=== PATIENT | female | born 1985 | race American Indian/Alaskan Native ===

== ENCOUNTER 2016-08-18 23:30 | Emergency (ER) | payer SELFPAY ==
[2016-08-18 23:49] VITALS: BP 138/98
[2016-08-19 00:12] LABS: Basophils % (Auto) 1.3 % (0.0-1.8); Eosinophils % (Auto) 1.3 % (0.0-4.3); Hematocrit 30.7 % (30.3-42.9); Hemoglobin 9.5 gm/dl (10.1-14.3); Mean Corpuscular HGB Conc 31 % (30-34); Platelet Count 347 K/mm3 (140-440); Red Blood Count 4.47 M/mm3 (3.65-5.03); White Blood Count 7.5 K/mm3 (4.5-11.0)
[2016-08-19 00:14] LABS: Mean Corpuscular Hemoglobin 21 pg (28-32); Mean Corpuscular Volume 69 fl (79-97)
[2016-08-19 01:08] LABS: Alanine Aminotransferase 10 units/L (7-56); Albumin 4.4 g/dL (3.9-5); Albumin/Globulin Ratio 1.5 %; Alkaline Phosphatase 44 units/L (35-129); Anion Gap 20 mmol/L; BUN/Creatinine Ratio 14.28; Bilirubin,Total 0.6 mg/dL (0.1-1.2); Blood Urea Nitrogen 10 mg/dL (7-17); Calcium 8.9 mg/dL (8.4-10.2); Carbon Dioxide 23 mmol/L (22-30); Chloride 103.6 mmol/L (98-107); Glucose 88 mg/dL (65-100); Lipase 41 units/L (13-60); Potassium 4.1 mmol/L (3.6-5.0); Sodium 142 mmol/L (137-145); Total Protein 7.4 g/dL (6.3-8.2)
--- NOTE | 2016-08-19 12:45 | ED Elopement Review ---
ED Pt Elopement review - Results review Lab results: Laboratory Tests 08/18/16 08/18/16 23:52 23:52 WBC 7.5 RBC 4.47 Hgb 9.5 L Hct 30.7 MCV 69 L MCH 21 L MCHC 31 RDW 18.0 H Plt Count 347 Lymph % (Auto) 36.0 H [place] % (Auto) 5.9 Eos % (Auto) 1.3 Baso % (Auto) 1.3 Lymph # 2.7 [place] # 0.4 Eos # 0.1 Baso # 0.1 Seg Neutrophils % 55.5 Seg Neutrophils # 4.2 Sodium 142 Potassium 4.1 Chloride 103.6 Carbon Dioxide 23 Anion Gap 20 BUN 10 Creatinine 0.7 Estimated GFR > 60 BUN/Creatinine Ratio 14.28 Glucose 88 Calcium 8.9 Total Bilirubin 0.6 AST 15 ALT 10 Alkaline Phosphatase 44 Total Protein 7.4 Albumin 4.4 Albumin/Globulin Ratio 1.5 Lipase 41 - Call Back decision Pt Call Back Decision: No action required
== END 2016-08-19 03:40 | disposition left against medical advice (07) ==
LOC: ED 23:30
DX: R50.9 Fever, unspecified (principal); R20.0 Anesthesia of skin; Z53.21 Procedure and treatment not carried out due to patient leaving prior to being seen by health care provider
CPT/HCPCS: 36415; 80053; 83690; 85025